=== PATIENT | male | born 2000 | race Hispanic/Latino ===

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

== ENCOUNTER 2022-12-26 15:25 | Emergency (ER) | payer MEDICAID, OTHER ==
[~2022-12-26] VITALS: Ht 165.1 cm; Wt 80.7 kg
[2022-12-26 16:12] LABS: HEMATOCRIT 43.1 % (42-54); MEAN CORPUSCULAR HEMOGLOBIN 29.3 pg (27.0-33.0); MEAN CORPUSCULAR HGB CONC 35.3 g/dL (32.0-36.0); RED BLOOD CELL COUNT(AUTO) 5.19 MIL/uL (4.50-6.20); RED CELL DISTRIBUTION WIDTH 12.2 % (11.0-15.5)
[2022-12-26 16:21] LABS: POTASSIUM 3.5 mmol/L (3.5-5.1)
[2022-12-26 16:26] LABS: ALBUMIN 4.4 g/dL (3.5-5.0); BILIRUBIN,TOTAL 0.4 mg/dL (0.2-1.0); TOTAL PROTEIN, SERUM 8.3 g/dL (6.0-8.3)
[2022-12-26] MEDS ORDERED: ALBU90AE2 IH (18:22)
[2022-12-26] MEDS ORDERED: AZIT250T9 PO (18:22)
[2022-12-26 18:30] VITALS: BP 123/83; PULSE 74; RESP 17; O2SAT 98
== END 2022-12-26 18:35 | disposition home or self-care (01) ==
LOC: EDH 15:25
DX: J06.9 Acute upper respiratory infection, unspecified (principal); D72.829 Elevated white blood cell count, unspecified; Z79.899 Other long term (current) drug therapy
CPT/HCPCS: 36415; 71045; 80053; 84484; 85027; 93005